=== PATIENT | female | born 1995 | race Caucasian/White ===

== ENCOUNTER 2024-11-21 08:29 | Outpatient (CLI) | payer SELFPAY ==
--- NOTE | ~2024-11-21 | US_ITS ---
Pelvic ultrasound. Clinical History: Left lower quadrant pain Technique: Realtime transabdominal scanning of the pelvis was performed. Color flow Doppler and Doppl er spectral analysis were performed. Findings: The uterus is anteverted. The endometrial stripe has a thickness of 3 mm. No focal mass is identified. The right ovary measures 2.5 x 3.0 x 1.7 cm. No significant right ovarian or adnexal mass is seen. The left ovary measures 2.6 x 3.8 x 1.8 cm. No significant left ovarian or adnexal mass is seen. Vascular flow present in both ovaries on Doppler spectral analysis. There is no evidence of free fluid in the cul de sac. Impression: Unremarkable pelvic ultrasound. Reviewed, dictated and finalized at location . Impression: Unremarkable pelvic ultrasound.
--- NOTE | ~2024-11-21 | US_ITS ---
Abdominal Sonogram: Real-time sonographic imaging of the abdomen was performed. Clinical History: Left lower quadrant pain Findings: The liver appears normal with no evidence of mass lesion or bile duct dilatation. Main por anne vein demonstrates normal direction of flow. The spleen is normal in size without evidence of foca l lesion. The gallbladder is well distended, and appears normal with no evidence of gallstone or wal l thickening. The common bile duct measures 3 mm. The visualized pancreas, aorta, and IVC are unrema rkable. The right kidney measures 11.3 cm in length and the left kidney measures 10.4 cm. There is no hydronephrosis or renal calculus. Impression: Unremarkable abdominal ultrasound. Reviewed, dictated and finalized at location . Impression: Unremarkable abdominal ultrasound.
== END 2024-11-21 08:30 | disposition home or self-care (01) ==
PROVIDERS: PCP Internal Medicine Rheumatology; Visit Provider Internal Medicine Rheumatology
DX: R10.32 Left lower quadrant pain (principal)
CPT/HCPCS: 76700; 76856